=== PATIENT | male | born 1990 ===

== ENCOUNTER 2017-07-12 07:31 | Emergency (ER) | payer OTHER ==
[2017-07-12 07:42] VITALS: RESP 18; TEMP 97.8; O2SAT 98
[2017-07-12 07:46] VITALS: BMI 20.9
--- NOTE | 2017-07-12 07:51 | ED PDOC ---
Arrival/HPI - General Time Seen by Provider: 07/12/17 07:38 Historian: Patient - History of Present Illness Narrative History of Present Illness (Text): 07/12/17 07:40 26 year old male, who presents to the emergency department complaining of feeling lightheaded since one day ago. Patient reports this morning waking up and feeling lightheaded again, when his abdominal pain began in the umbilical region, associated with vomiting. Additionally, patient reports feeling dehydrated. Patient denies diarrhea, fever, shortness of breath, chest pain, or having sick contacts. PMD: None Time/Duration: 24 hours Symptom Onset: Sudden Symptom Course: Unchanged Activities at Onset: Rest Context: Home Past Medical History - Provider Review Nursing Documentation Reviewed: Yes Family/Social History Family/Social History: Unknown Family HX Allergies/Home Meds Allergies/Adverse Reactions: Allergies No Known Allergies Allergy (Verified 07/12/17 07:46) Review of Systems - Review of Systems Constitutional: absent: Fevers ENT: absent: Sore Throat Respiratory: absent: SOB Cardiovascular: absent: Chest Pain Gastrointestinal: Abdominal Pain (umbilical region ), Nausea, Vomiting. absent : Stool Changes, Diarrhea, Hematochezia, Hematemesis Genitourinary Male: absent: Dysuria, Frequency Musculoskeletal: Back Pain (minor) Skin: absent: Rash Neurological: Dizziness (lightheadedness ). absent: Headache Endocrine: absent: Diaphoresis Physical Exam Vital Signs Reviewed: Yes Vital Signs Temp Pulse Resp BP Pulse Ox 07/12/17 09:45 60 18 92/54 L 98 07/12/17 07:41 97.8 F 62 18 106/72 98 Temperature: Afebrile Blood Pressure: Normal Pulse: Regular Respiratory Rate: Normal Appearance: Positive for: Well-Appearing, Non-Toxic, Comfortable Pain Distress: None Mental Status: Positive for: Alert and Oriented X 3 - Systems Exam Head: Present: Atraumatic, Normocephalic Pupils: Present: PERRL Extroacular Muscles: Present: EOMI Conjunctiva: Present: Normal Mouth: Present: Dry Respiratory/Chest: Present: Clear to Auscultation, Good Air Exchange. No: Respiratory Distress, Accessory Muscle Use, Wheezes, Rales, Rhonchi Cardiovascular: Present: Regular Rate and Rhythm, Normal S1, S2. No: Murmurs Abdomen: Present: Tenderness (periumbilical region ), Normal Bowel Sounds. No: Distention, Peritoneal Signs, Rebound, Guarding Neurological: Present: GCS=15, CN II-XII Intact, Speech Normal Skin: Present: Warm, Dry, Normal Color. No: Rashes Psychiatric: Present: Alert, Oriented x 3, Normal Insight, Normal Concentration Medical Decision Making ED Course and Treatment: 07/12/17 Impression: 26 year old with periumbilical tenderness and dry mucous membrane, complaining of abdominal pain associated with vomiting and lightheadedness. Differential Diagnosis included but are not limited to: dehydration vs. viral syndrome Plan: -- Labs -- Pepcid and Zofran -- Reassess and disposition Progress Notes: 07/12/17 09:15 Reevaluation: On reevaluation the patient's abdominal pain is resolved and is in no acute distress. Patient tolerated the fluids well PO. He no longer feel lightheaded even at standing. I have discussed the results and plan with the patient, who expresses understanding. Patient given the opportunity to ask question, all questions were answered and there is agreement with the plan to discharge the patient home. Patient is stable for discharge. Patient was instructed to follow up with physician/clinic in 1-2 days or return if symptoms persist/worsen or new concerning symptoms arise. - Lab Interpretations Lab Results: 07/12/17 08:00 07/12/17 08:00 Lab Results 07/12/17 08:00: Sodium 143, Potassium 3.9, Chloride 107, Carbon Dioxide 28, Anion Gap 12, BUN 14, Creatinine 0.7 L, Est GFR ( Amer) > 60, Est GFR ( Non-Af Amer) > 60, Random Glucose 94, Calcium 9.5, Total Bilirubin 0.4, AST 22, ALT 30, Alkaline Phosphatase 58, Total Protein 6.5, Albumin 3.8, Globulin 2.6, Albumin/Globulin Ratio 1.4, Lipase 42 07/12/17 08:00: WBC 9.8, RBC 4.24, Hgb 12.6 L, Hct 37.9 L, MCV 89.4, MCH 29.7, MCHC 33.2, RDW 14.1, Plt Count 240, MPV 9.2, Gran % 74.0 H, Lymph % (Auto) 13.3 L, Woodson % (Auto) 10.5 H, Eos % (Auto) 2.0, Baso % (Auto) 0.2, Gran # 7.27 H, Lymph # (Auto) 1.3, Woodson # (Auto) 1.0 H, Eos # (Auto) 0.2, Baso # (Auto) 0.02 I have reviewed the lab results: Yes - Medication Orders Current Medication Orders: Discontinued Medications Famotidine (Pepcid) 20 mg IVP STAT STA Stop: 07/12/17 07:55 Last Admin: 07/12/17 08:25 Dose: 20 mg IVP Administration Document 07/12/17 08:25 [facility] (Rec: 07/12/17 08:26 [facility] [id number]) Charges for Administration # of IVP Administrations 1 Re-Assess: VEGA Pain Assessment Document 07/12/17 09:56 [facility] (Rec: 07/12/17 09:56 [facility] [id number]) Pain Reassessment Is this a pain reassessment? Yes Presence of Pain Presence of Pain No Sodium Chloride (Sodium Chloride 0.9%) 1,000 mls @ 1,000 mls/hr IV .Q1H STA Stop: 07/12/17 08:53 Last Admin: 07/12/17 08:25 Dose: 1,000 mls/hr eMAR Start Stop Document 07/12/17 08:25 [facility] (Rec: 07/12/17 08:25 [facility] [id number]) Intravenous Solution Start Date 07/12/17 Start Time 08:25 End Date 07/12/17 End time 09:25 Total Infusion Time 60 Ondansetron HCl (Zofran Inj) 4 mg IVP STAT STA Stop: 07/12/17 07:55 Last Admin: 07/12/17 08:26 Dose: 4 mg IVP Administration Document 07/12/17 08:26 [facility] (Rec: 07/12/17 08:26 [facility] [id number]) Charges for Administration # of IVP Administrations 1 Re-Assess: [facility] Pain Assessment Document 07/12/17 09:56 [facility] (Rec: 07/12/17 09:57 [facility] [id number]) Pain Reassessment Is this a pain reassessment? Yes Presence of Pain Presence of Pain No - Scribe Statement The provider has reviewed the documentation as recorded by the Velia Love Provider Scribe Attestation: All medical record entries made by the Scribe were at my direction and personally dictated by me. I have reviewed the chart and agree that the record accurately reflects my personal performance of the history, physical exam, medical decision making, and the department course for this patient. I have also personally directed, reviewed, and agree with the discharge instructions and disposition. Disposition/Present on Arrival - Present on Arrival Any Indicators Present on Arrival: No - Disposition Have Diagnosis and Disposition been Completed?: Yes Diagnosis: Abdominal pain Disposition: HOME/ ROUTINE Disposition Time: 09:54 Patient Plan: Discharge Condition: IMPROVED Discharge Instructions (ExitCare): Acute Abdomen (Belly Pain), Viral Gastroenteritis, Adult (DC) Additional Instructions: Mr Lr thank you for letting us take care of you today. Your provider was Dr. Allen. You were treated for Abdominal Pain. The emergency medical care you received today was directed at your acute symptoms. If you were prescribed any medication, please fill it and take as directed. It may take several days for your symptoms to resolve. Return to the Emergency Department if your symptoms worsen, do not improve, or if you have any other problems. Please contact your doctor or call one of the physicians/clinics you have been referred to that are listed on the Patient Visit Information form that is included in your discharge packet. Bring any paperwork you were given at discharge with you along with any medications you are taking to your follow up visit. Our treatment cannot replace ongoing medical care by a primary care provider (PCP) outside of the emergency department. Thank you for allowing the [facility] team to be part of your care today. If you had an X-Ray or CT scan: A Radiologist will review the ED reading if any change in treatment is needed we will contact you. If you had a blood, urine, or wound culture: It will take several days for the results, if any change in treatment is needed we will contact you. If you had an STI test: It will take 48 hours for the results. Please call after 1 week if you have not heard back. Prescriptions: Ranitidine HCl [Zantac] 150 mg PO BID PRN #30 tablet PRN Reason: Pain, Mild (1-3) Referrals: [facility] at [facility] [place] [facility] [Outside] - Follow up with primary Forms: [employer] ([employer]), WORK NOTE
[2017-07-12] MEDS ORDERED: Sodium Chloride 0.9% 1,000 ML IV STA (07:54)
[2017-07-12 08:18] LABS: BASO # 0.02 K/mm3 (0.0-2.0); BASO % 0.2 % (0.0-3.0); EOS # 0.2 (0.0-0.7); GRAN # 7.27 (1.4-6.5); HEMOGLOBIN 12.6 g/dL (14.0-18.0); LYMPH # 1.3 (1.2-3.4); LYMPH % 13.3 % (22.0-35.0); MEAN CELL VOLUME 89.4 fl (80.0-105.0); MEAN CORPUSCULAR HEMOGLOBIN 29.7 pg (25.0-35.0); MEAN CORPUSCULAR HGB CONC 33.2 g/dl (31.0-37.0); MEAN PLATELET VOLUME 9.2 fl (7.0-11.0); MONO % 10.5 % (1.0-6.0); RBC 4.24 10^6/uL (3.5-6.1); RED CELL DISTRIBUTION WIDTH 14.1 % (11.5-14.5); WHITE BLOOD COUNT 9.8 10^3/ul (4.5-11.0)
[2017-07-12 08:27] LABS: ALB/GLOB RATIO 1.4 (1.1-1.8); ALBUMIN 3.8 g/dL (3.0-4.8); ALT/SGPT 30 U/L (7-56); AST/SGOT 22 U/L (17-59); BLOOD UREA NITROGEN 14 mg/dL (7-21); CALCIUM 9.5 mg/dL (8.4-10.5); GFR AFRICAN-AMERICAN > 60; GFR NON-AFRICAN AMERICAN > 60; LIPASE 42 U/L (23-300)
[2017-07-12 09:45] VITALS: BP 92/54; PULSE 60
== END 2017-07-12 09:56 | disposition home or self-care (01) ==
LOC: ED 07:31 → MERGE 07:31 → ED 09:56
DX: R10.9 Unspecified abdominal pain (principal)
CPT/HCPCS: 80053; 83690; 85025; 96361; 96374; 96375; 99284; J2405; J7040